=== PATIENT | female | born 2000 | race American Indian/Alaskan Native ===

== ENCOUNTER 2021-03-03 17:15 | Emergency (ER) | payer OTHER ==
[~2021-03-03] VITALS: Ht 167.6 cm; Wt 79.0 kg
[2021-03-03] MEDS ORDERED: CYCL5TAB PO (17:25)
[2021-03-03] MEDS ORDERED: OXYC-517 PO (17:25)
[2021-03-03] MEDS ORDERED: NS 1,000 ML IV SCH (19:45)
[2021-03-03] MEDS ORDERED: MORPHINE 2 MG/ML 1ML VIAL (J2270) IV ONE (19:45)
[2021-03-03 20:57] LABS: BASO # 0.1 10^3/uL (0.0-0.2); BASO % 0.6 % (0.0-1.0); EOS # 0.3 10^3/uL (0.0-0.5); EOS % 3.5 % (0.0-3.0); HEMATOCRIT 42.3 % (36.0-47.0); HEMOGLOBIN 14.8 g/dl (12.0-15.5); LYMPH # 1.6 10^3/uL (1.5-5.0); LYMPH % 20.5 % (24.0-44.0); MEAN CORPUSCULAR HEMOGLOBIN 32.5 pg (27.0-33.0); MONO # 0.5 10^3/uL (0.0-0.8); MONO % 6.4 % (2.0-8.0); NEUTROPHILS # 5.4 10^3/uL (1.5-8.5); NEUTROPHILS % 68.4 % (36.0-66.0); PLATELET COUNT, AUTOMATED 348 10^3/uL (150-450); RED BLOOD COUNT 4.55 10^6/uL (4.00-5.40); WHITE BLOOD COUNT 7.9 10^3/uL (4.0-10.0)
[2021-03-03 21:16] LABS: BLOOD UREA NITROGEN 7 MG/DL (7-18); CALCIUM LEVEL 9.5 MG/DL (8.5-10.1); CARBON DIOXIDE LEVEL 26 MEQ/L (21-32); CHLORIDE LEVEL 105 MEQ/L (98-107); CK-MB VALUE MASS < 1.0 NG/ML (<3.6); CPK CREATINE PHOSPHOKINASE 60 U/L (26-192); CREATININE FOR GFR 0.55 MG/DL (0.55-1.30); GLOMERULAR FILTRATION RATE > 60.0 (>60); GLUCOSE, FASTING 85 MG/DL (70-100); MB/CK RELATIVE INDEX 1.67 (< OR =4); SODIUM LEVEL 140 MEQ/L (136-145); TROPONIN I < 0.02 NG/ML (< 0.10)
[2021-03-03 21:17] LABS: HCG, SERUM QUALITATIVE NEGATIVE (NEGATIVE)
[2021-03-03] MEDS ORDERED: ISOVUE-370 76% 100ML VIAL As Ordered ONE (21:24)
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
[2021-03-04] MEDS ORDERED: MORPHINE 4 MG/ML 1ML VIAL/SYRINGE (J2270) IV ONE (00:40)
[2021-03-04 01:37] VITALS: BP 128/74
[2021-03-04] MEDS ORDERED: HYDR-3363 PO (01:44)
[2021-03-04] MEDS ORDERED: LEXA5TAB13 PO (01:44)
--- NOTE | 2021-03-04 05:50 | ECGEPIP ---
[facility] - ED Test Date: 2021-03-03 Pat Name: GERMÁN MADERA Department: Room: - Gender: Female [employer]: HIEN : 2000 Requested By: ALMAS Allen Order Number: [id number] Reading MD: Tony Tamez Measurements Intervals [place] Rate: 85 P: -20 SD: 158 QRS: -24 QRSD: 72 T: 9 QT: 362 QTc: 430 Interpretive Statements Normal sinus rhythm LOW VOLTAGE THROUGHOUT Nonspecific T wave abnormality NO PRIORS FOR COMPARISON Electronically Signed on 03-04-2021 5:50:13 EDT by Tony Tamez
== END 2021-03-04 01:51 | disposition short-term general hospital (02) ==
LOC: M ED 17:15
DX: S12.591A Other nondisplaced fracture of sixth cervical vertebra, initial encounter for closed fracture (principal); S22.21XA Fracture of manubrium, initial encounter for closed fracture; V89.2XXA Person injured in unspecified motor-vehicle accident, traffic, initial encounter; Y92.89 Other specified places as the place of occurrence of the external cause; Y93.89 Activity, other specified; Y99.8 Other external cause status; Z79.899 Other long term (current) drug therapy; Z87.891 Personal history of nicotine dependence
CPT/HCPCS: 71260; 72125; 80048; 82550; 82553; 84484; 84703; 85025; 93005; 93041; 94760; 96374; 96375; 99285; J2270; Q9967